=== PATIENT | female | born 1985 | race Caucasian/White ===

== ENCOUNTER 2023-07-05 16:27 | Emergency (ER) | payer BC ==
[~2023-07-05] VITALS: Ht 160 cm; Wt 68.0 kg
[2023-07-05 16:45] VITALS: O2SAT 99
[2023-07-05] MEDS: IBUPROFEN 600MG TABLET PO ONE (17:56)
[2023-07-05 19:44] VITALS: BP 112/74; PULSE 78; RESP 12; TEMP 97.5
== END 2023-07-05 19:45 ==
LOC: ER 16:27
DX: S82.61XA Displaced fracture of lateral malleolus of right fibula, initial encounter for closed fracture (principal); F19.90 Other psychoactive substance use, unspecified, uncomplicated; Z90.49 Acquired absence of other specified parts of digestive tract; W18.39XA Other fall on same level, initial encounter; Y93.89 Activity, other specified; Y92.89 Other specified places as the place of occurrence of the external cause; Y99.8 Other external cause status
CPT/HCPCS: 73610; 73630; 29515; 99284; Z7610